=== PATIENT | male | born 1985 | race Caucasian/White ===

== ENCOUNTER 2016-08-28 17:42 | Emergency (ER) | payer SELFPAY ==
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
[2016-08-28 17:59] VITALS: TEMP 97.2
[2016-08-28 18:54] VITALS: BP 112/73; O2SAT 96
--- NOTE | 2016-09-07 13:44 | RAD ---
EXAM DESCRIPTION: Hand,Right 3 Views CLINICAL HISTORY: 31 years Male ,Pain and deformity of 3rd MCP joint s/p fall COMPARISON: None. TECHNIQUE: Three views of the right hand. FINDINGS: No acute fractures or dislocations are identified. No osseous destructive lesions. Old appearing ulnar styloid process fracture. Soft tissue swelling over the dorsum of the hand. Radiopaque densities beneath the fingernails at the third and fourth digits. IMPRESSION: No acute fracture is identified. Electronically signed by: Yoni Verdugo MD 08/28/2016 6:19 PM CERTIFIED PROFESSIONAL ERGONOMIST
--- NOTE | 2016-09-12 00:07 | RAD ---
EXAM DESCRIPTION: Hand,Right 3 Views CLINICAL HISTORY: 31 years Male ,Pain and deformity of 3rd MCP joint s/p fall COMPARISON: None. TECHNIQUE: Three views of the right hand. FINDINGS: No acute fractures or dislocations are identified. No osseous destructive lesions. Old appearing ulnar styloid process fracture. Soft tissue swelling over the dorsum of the hand. Radiopaque densities beneath the fingernails at the third and fourth digits. IMPRESSION: No acute fracture is identified. Electronically signed by: Yoni Verdugo MD 08/28/2016 6:19 PM PROFESSOR OF [employer]IMINAL JUSTICE
== END 2016-08-28 18:54 | disposition home or self-care (01) ==
LOC: ER 17:42
DX: S60.221A Contusion of right hand, initial encounter (principal); S60.512A Abrasion of left hand, initial encounter; S60.511A Abrasion of right hand, initial encounter; W01.0XXA Fall on same level from slipping, tripping and stumbling without subsequent striking against object, initial encounter; Y92.009 Unspecified place in unspecified non-institutional (private) residence as the place of occurrence of the external cause